=== PATIENT | male | born 1975 | race Caucasian/White ===

== ENCOUNTER 2019-10-04 10:09 | Emergency (ER) | payer OTHER, SELFPAY ==
--- NOTE | ~2019-10-04 | XR_ITS ---
EXAMINATION: XR chest 2V DATE: 10/04/2019 10:31 INDICATION: Cough. TECHNIQUE: Frontal and lateral views of the chest were obtained on 3 radiographs. COMPARISON: Chest 2 views 02/14/2019 FINDINGS: There is mild atelectasis in the mid and lower lung zones. No pleural effusion or pneumotho rax. Cardiomegaly is noted. There are changes of anterior fusion procedure in cervical spine. IMPRESSION: 1. Mild atelectasis in the mid and lower lung zones. 2. Cardiomegaly. Reviewed, dictated and finalized at location A. 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
[2019-10-04 10:19] VITALS: BP 124/82; PULSE 86; RESP 20; TEMP 37.2; O2SAT 99
--- NOTE | 2019-10-04 10:20 | ED.URI ---
HPI - URI/Sore Throat General Chief Complaint: Upper Respiratory Infection Stated Complaint: chest discomfort/cought/congestion History of Present Illness HPI Narrative: This is a 44-year-old male comes in complaining of some right-sided chest wall pain with coughing shortness of breath with movement patient has been treated for respiratory infection approximately 1 week ago was given Levaquin and some steroids still having cough is still using his inhaler patient is a smoker. Related Data Allergies Allergy/AdvReac Type Severity Reaction Status Date / Time Cephalosporins Allergy Unknown Hives Verified 09/11/19 09:49 (moderate) Penicillins Allergy Unknown Hives Verified 09/11/19 09:49 PROCHLORPERAZINE EDISYLATE Allergy Unknown spasms Uncoded 09/11/19 09:49 PROCHLORPERAZINE MALEATE Allergy Unknown spasms Uncoded 09/11/19 09:49 Review of Systems Review of Systems: Narrative: CONSTITUTIONAL: Denies fever, chills, or sweats. EYES: Denies visual changes, redness, or discharge. ENT: Reports rhinorrhea, congestion, sore throat, or otalgia. CARDIOVASCULAR:Denies chest pain, palpitations, or edema. RESPIRATORY: Reports cough or dyspnea. GASTROINTESTINAL: Denies abdominal pain, nausea, vomiting, or diarrhea. GENITOURINARY: Denies dysuria or hematuria. SKIN:[Denies rash or itching. MUSCULOSKELETAL:Denies back pain, joint pain, or myalgia. NEUROLOGIC: Denies headache, numbness, or weakness. PSYCHIATRIC:Denies anxiety or depression PMFSH Past Medical History Medical History (Updated 10/04/19 @ 10:42 by Shannan Chris NP) Chronic GERD Memory loss Social History Social History Second hand tobacco smoke exposure: No Alcohol intake: current Gender identity (if verbalized by the patient): Male Comments At time as signature, I have reviewed and agree with nursing past medical, social, surgical and family history. Please see nursing chart for further information. There is no relevant family history pertinent to the presenting complaint. Exam Narrative: Exam Narrative: GENERAL:Well-appearing, well-nourished, and in no acute distress. HEAD:Normocephalic, atraumatic. EYES: PERRLA and EOMI. ENT: Nares clear, no rhinorrhea or epistaxis. Mucous membranes moist. NECK: Supple. CHEST: Clear to diminished auscultation. No respiratory distress. Shortness of breath with ambulation and movement pain to the right upper chest toward rib cage HEART: Regular rate and rhythm. No murmur heard. Normal peripheral pulses. ABDOMEN: Soft, nontender, nondistended, normal active bowel sounds. EXTREMITIES: Normal range of motion. No edema. SKIN: Warm, dry, no rash. NEURO: No focal deficits. Alert and oriented x3. Discharge Plan Discharge Clinical Impression: Pneumonia Qualifiers: Pneumonia type: due to unspecified organism Laterality: bilateral Lung location: lower lobe of lung Qualified Code(s): J18.9 - Pneumonia, unspecified organism Patient Disposition: Home, Self-Care Condition: Stable Instructions: Antibiotic Form, Community Acquired Pneumonia (ED), Shortness of Breath (ED) Prescriptions: New levofloxacin [Levaquin] 750 mg tablet 750 mg PO DAILY 10 Days Qty: 10 RF: 0 No Action pantoprazole 40 mg tablet,delayed release (DR/EC) 40 mg PO QAM 30 Days Qty: 30 RF: 2 ketorolac 10 mg tablet 10 mg PO .4 times a day PRN (Reason: pain) 5 Days Qty: 20 RF: 1 metformin 500 mg tablet extended release 24 hr 500 mg PO .in the evening Qty: 90 RF: 0 amitriptyline 100 mg tablet 100 mg PO ONCE Qty: 30 RF: 2 montelukast 10 mg tablet 10 mg PO DAILY Qty: 30 RF: 2 fluticasone propion-salmeterol 232-14 mcg/actuation aerosol powdr breath activated 1 puff INHALATION BID Qty: 1 RF: 2 topiramate 50 mg tablet 100 mg PO DAILY Qty: 90 RF: 0 atorvastatin 40 mg tablet 40 mg PO DAILY Qty: 90 RF: 1 clotrimazole 1 % cream 1 applic TOPICAL Q12H Qty: 30 RF: 0 triamcinolone acetonide 0.1 % oin
== END 2019-10-04 10:58 | disposition home or self-care (01) ==
PROVIDERS: Emergency Provider Nurse Practitioner Family; PCP Internal Medicine
DX: J18.9 Pneumonia, unspecified organism (principal); F17.200 Nicotine dependence, unspecified, uncomplicated; K21.9 Gastro-esophageal reflux disease without esophagitis; E11.40 Type 2 diabetes mellitus with diabetic neuropathy, unspecified; E78.00 Pure hypercholesterolemia, unspecified; I10 Essential (primary) hypertension
CPT/HCPCS: 71046; 99213; G0463

== ENCOUNTER 2019-10-28 10:29 | Emergency (ER) | payer OTHER, SELFPAY ==
--- NOTE | 2019-10-28 10:47 | ED.GENADULT ---
HPI - General Adult General Stated complaint: SOB Time Seen by Provider: 10/28/19 10:47 Source: patient Mode of arrival: ambulatory Limitations: no limitations History of Present Illness HPI narrative: 44-year-old male patient presents to the [facility] with complaints of chest pain shortness of breath for the past 2 to 3 days. Patient does have a history of diabetes and asthma. Patient states he was seen a couple weeks ago at the hospital and was diagnosed with pneumonia at that time. Patient states he was given some antibiotics but states that for the past 2 to 3 days his symptoms have returned. Patient denies any fevers that he is aware of. Denies any recent travel. Patient states he is currently unemployed. Related Data Allergies Allergy/AdvReac Type Severity Reaction Status Date / Time Cephalosporins Allergy Unknown Hives Verified 10/09/19 09:58 (moderate) Penicillins Allergy Unknown Hives Verified 10/09/19 09:58 PROCHLORPERAZINE EDISYLATE Allergy Unknown spasms Uncoded 10/09/19 09:58 PROCHLORPERAZINE MALEATE Allergy Unknown spasms Uncoded 10/09/19 09:58 Review of Systems Review of Systems: Narrative: CONSTITUTIONAL: Denies fever, chills, or sweats. Positive muscle aches EYES: Denies visual changes, redness, or discharge. ENT: Denies rhinorrhea, congestion, sore throat, or otalgia. CARDIOVASCULAR: Positive chest pain, denies palpitations, or edema. RESPIRATORY: Positive cough with dyspnea. GASTROINTESTINAL: Denies abdominal pain, nausea, vomiting, or diarrhea. GENITOURINARY: Denies dysuria or hematuria. SKIN: Denies rash or itching. MUSCULOSKELETAL: Denies back pain, joint pain, or myalgia. NEUROLOGIC: Denies headache, numbness, or weakness. PSYCHIATRIC: Denies anxiety or depression. [facility] Past Medical History Medical History Chronic GERD Memory loss Social History Social History Second hand tobacco smoke exposure: No Alcohol intake: current Gender identity (if verbalized by the patient): Male Comments At the time of my signature I agree with nursing past medical history, surgical, social, and family history. There is no relevant family history pertinent to the presenting complaint. Exam Narrative: Exam Narrative: GENERAL: Well-appearing, well-nourished, and in no acute distress. HEAD: Normocephalic, atraumatic. EYES: PERRLA and EOMI. ENT: Nares clear, no rhinorrhea or epistaxis. Mucous membranes moist. NECK: Supple. No lymphadenopathy CHEST: No respiratory distress. Patient able to clear complete sentences. No tripoding noted. HEART: Regular rate and rhythm. No murmur heard. Normal peripheral pulses. ABDOMEN: Soft, nontender, nondistended, normal active bowel sounds. EXTREMITIES: Normal range of motion. No edema. SKIN: Warm, dry, no rash. NEURO: No focal deficits. Alert and oriented x3. Course Vital Signs Vital signs: Vital signs reviewed. Medical Decision Making Differential Diagnosis Differential Diagnosis: Differential diagnosis: Allergic rhinitis, chronic sinusitis, tonsillitis, acute sinusitis, infectious mononucleosis, seasonal influenza, pertussis, diphtheria, meningococcal disease, viral syndrome, viral bronchitis, RSV. Discussed with patient I did cut his information as well as his symptoms to the [facility] database to see if he would qualify for state testing of covered 19. Discussed with him that the request was denied however I do think that he could possibly be screened and therefore we have given him resources to obtain covered 19 testing including to be seen at [facility] for possible [place] at 19 testing. Discussed with patient that if his symptoms continue to get worse than he would need to go to the ER for further evaluation and testing. Discussed with patient that another thing he can do is possibly call his primary doctor to see
--- NOTE | 2019-10-28 12:35 | PC.NURSE ---
1050- This RN did not personally assess pt. When cleaning waiting room and vestibule area, pt discarded Covid testing information on the floor. Per patient insurance clerk he was laughing the entire time he was in facility with his son.
== END 2019-10-28 12:35 | disposition other institution (70) ==
PROVIDERS: Emergency Provider Nurse Practitioner Family; PCP Internal Medicine
DX: R06.02 Shortness of breath (principal); K21.9 Gastro-esophageal reflux disease without esophagitis
CPT/HCPCS: 99211; G0463

== ENCOUNTER 2020-02-27 07:53 | Outpatient (CLI) | payer OTHER, SELFPAY ==
--- NOTE | ~2020-02-27 | US_ITS ---
EXAMINATION: US thyroid DATE: 02/27/2020 08:36 INDICATION: Abnormal thyroid function tests. TECHNIQUE: Multiple ultrasound images of the thyroid were obtained. COMPARISON: None. FINDINGS: The right thyroid lobe measures 4.8 x 1.6 x 1.8 cm. The left thyroid lobe measures 4.1 x 1.8 x 1.8 c m. There is normal echotexture and echogenicity throughout the thyroid gland. No discrete nodules id entified. Normal vascular flow is present. IMPRESSION: 1. Normal thyroid. Reviewed, dictated and finalized at location A. IMPRESSION: 1. Normal thyroid.
== END 2020-02-27 07:54 | disposition home or self-care (01) ==
PROVIDERS: PCP Internal Medicine; Visit Provider Internal Medicine
DX: R79.89 Other specified abnormal findings of blood chemistry (principal)
CPT/HCPCS: 76536

== ENCOUNTER 2020-12-08 18:42 | Outpatient (CLI) | payer OTHER, SELFPAY ==
--- NOTE | ~2020-12-08 | XR_ITS ---
EXAMINATION: XR chest 2V EXAM DATE: 12/08/2020 18:54 INDICATION: Pneumonia. TECHNIQUE: Frontal and lateral projections of the chest obtained and reviewed. Comparison is made to prior examination from 10/04/2019. FINDINGS: There is moderate cardiomegaly. Some linear right midlung zone scarring. The lungs are othe rwise clear. There are no pleural effusions. There is no pneumothorax suspected. The bones and sof t tissues are unremarkable. Cervical fusion hardware. IMPRESSION: Cardiomegaly. Reviewed, dictated and finalized at location A. IMPRESSION: Cardiomegaly.
== END 2020-12-08 18:43 | disposition home or self-care (01) ==
PROVIDERS: PCP Family Medicine; Visit Provider Family Medicine
DX: J18.9 Pneumonia, unspecified organism (principal); I51.7 Cardiomegaly
CPT/HCPCS: 71046

== ENCOUNTER 2023-05-25 08:53 | Outpatient (CLI) | payer OTHER, SELFPAY ==
--- NOTE | ~2023-05-25 | XR_ITS ---
XR sternum min 2V DATE: 05/25/2023 09:12 INDICATION: Precordial pain for one year. No injury.] As the TECHNIQUE: Oblique and lateral views COMPARISON: None FINDINGS: No sternal fracture or bone destruction is detected. Normal alignment at the sternoclavicul ar joints. Lower anterior cervical spine surgical fusion. IMPRESSION: Negative sternum Reviewed, dictated and finalized at location A. IMPRESSION: Negative sternum
== END 2023-05-25 08:54 | disposition home or self-care (01) ==
PROVIDERS: PCP Physician Assistant; Visit Provider Physician Assistant
DX: R07.2 Precordial pain (principal)
CPT/HCPCS: 71120

== ENCOUNTER 2023-11-19 08:44 | Outpatient (CLI) | payer OTHER, SELFPAY ==
[2023-11-19 09:31] LABS: Alanine Aminotransferase 29 U/L (6-50); Albumin Level 5.2 g/dL (3.5-5.1); Alkaline Phosphatase 80 U/L (38-126); Anion Gap 8 mmol/L (4-12); Aspartate Amino Transferase 28 U/L (17-59); Bilirubin,Total 0.5 mg/dL (0.2-1.3); Blood Urea Nitrogen 12 mg/dL (9-20); Calcium 9.9 mg/dL (8.4-10.2); Carbon Dioxide 24 mmol/L (22-30); Chloride 108 mmol/L (98-107); Cholesterol 163 mg/dL (0-200); Estimated Glomerular Filt Rate > 60; Glucose 106 mg/dL (65-110); HDL Direct 47 mg/dL; Potassium 4.6 mmol/L (3.4-5.0); Sodium 140 mmol/L (137-145); Triglycerides 99 mg/dL (<150)
[2023-11-19 09:42] LABS: LDL Cholesterol Direct 98 mg/dL
[2023-11-19 09:57] LABS: Hemoglobin A1C 5.8 % (<5.7)
[2023-11-19 10:02] LABS: Thyroid Stimulating Hormone 0.611 uIU/mL (0.465-4.680)
[2023-11-19 10:31] LABS: Vitamin D 25 Hydroxy 33.6 ng/mL
== END 2023-11-19 08:45 | disposition home or self-care (01) ==
LOC: ANHLAB 08:47
PROVIDERS: PCP Physician Assistant; Visit Provider Physician Assistant
DX: E66.3 Overweight (principal); E55.9 Vitamin D deficiency, unspecified
CPT/HCPCS: 36415; 80053; 80061; 82306; 83036; 84439; 84443

== ENCOUNTER 2024-01-04 07:54 | Outpatient (CLI) | payer OTHER, SELFPAY ==
--- NOTE | 2024-01-05 08:57 | P.PCNPFT_ITS ---
PFT Procedure Performed PFT Procedure Performed Plethysmography (Lung Vol) Diffusing Cap (DLCO) Flow Vol Loop Spirometry w/o Bronchodil PFT Interpretation Lung volumes were measured with the body plethysmography method. Lung volumes are unremarkable. Spirometry showed diminished expiratory flow rates and a n ormal FEV1 to FVC ratio 78%. The restrictive pattern on spirometry in conjunction with a normal total lung capacity is indicative of a non specific pattern. No post bronchodilator study was carried out. Lung diffusion capacity is moderately reduced at 55% predicted. The diminished lung diffusion capacity coupled with a low alveolar volume and normal DLCO/VA ratio may suggest loss of alveolar capillary structure as seen in emphysema or interstitial lung disease. Clinical correlation advised. The flow volume loop is unremarkable. Impression: Nonspecific pattern. Moderately reduced lung diffusion capacity.
== END 2024-01-04 07:55 | disposition home or self-care (01) ==
LOC: ANHPFT 07:55
PROVIDERS: PCP Physician Assistant; Visit Provider Physician Assistant
DX: J44.9 Chronic obstructive pulmonary disease, unspecified (principal)
CPT/HCPCS: 94375; 94726; 94729

== ENCOUNTER 2024-05-24 09:51 | Emergency (ER) | payer OTHER, SELFPAY ==
--- NOTE | ~2024-05-24 | XR_ITS ---
CHEST RADIOGRAPH, PA AND LATERAL CLINICAL HISTORY: syncope yesterday evening, denies cardiac or blood pressure . COMPARISON: 05/25/2023 TECHNIQUE: PA and lateral views of the chest. FINDINGS The cardiomediastinal silhouette is unremarkable. The lungs are clear. Visualized osseous structures and soft tissues are unremarkable. IMPRESSION: No focal infiltrate or effusion. Reviewed, dictated and finalized at location A.
--- NOTE | ~2024-05-24 | CT_ITS ---
CT brain wo con Ordering provider: Maynor Garduno MD History: 49 years Male with . syncope . Comparison: October 20, 2018 Technique: CT of the head without contrast. Radiation reduction technique utilized.The dose-length product was 605.33 mGy-cm. FINDINGS: BRAIN PARENCHYMA AND CSF SPACES: No midline shift, mass effect or hemorrhage. The brain parenchyma a nd CSF spaces are otherwise normal. VISUALIZED PARANASAL SINUSES: Well aerated. MASTOIDS: Well aerated. BONES: The bones appear intact. SOFT TISSUES: Visualized nasopharynx is normal. Superficial soft tissues are normal. IMPRESSION: No acute intracranial findings. Reviewed, dictated and finalized at location A.
[2024-05-24 09:56] VITALS: BP 137/78; PULSE 99; RESP 18; TEMP 36.7; O2SAT 100
--- NOTE | 2024-05-24 09:56 | ECG_ITS ---
Test Date: 2024-05-24 10:02:20 Measurements Intervals [place] Rate: 57 P: 61 [place]: 159 QRS: -44 QRSD: 142 T: 93 QT: 391 QTc: 384 Interpretive Statements SINUS BRADYCARDIA WITH MARKED RHYTHM IRREGULARITY, POSSIBLE NON-CONDUCTED PAC, SA BLOCK, AV BLOCK, OR SINUS PAUSE LEFT ATRIAL ENLARGEMENT [-0.15mV P WAVE IN V1/V2] MARKED LEFT AXIS DEVIATION [QRS AXIS < -30] INTRAVENTRICULAR CONDUCTION DELAY [130+ ms QRS DURATION] No previous ECG available for comparison Electronically Signed On 05-24-2024 15:25:02 CDT by Azeb Dolan M.D.
[2024-05-24 10:15] LABS: Basophils Absolute Auto 0.1 K/mm3 (0.0-0.1); Basophils Percent Auto 0.8 % (0.2-1.2); Eosinophils Absolute Auto 0.1 K/mm3 (0-0.3); Eosinophils Percent Auto 1.1 % (0-4.4); Hematocrit 49.3 % (42.0-52.0); Hemoglobin 16.1 g/dL (14.0-18.0); Immature Granulocyte Absolute 0.05 K/mm3 (0.00-0.031); Immature Granulocyte Percent A 0.4 % (0-0.5); Lymphocytes Absolute Auto 3.07 K/mm3 (0.9-3.2); Lymphocytes Percent Auto 25.9 % (18.3-44.2); Mean Corpuscular HGB Conc 32.7 g/dl (32-36); Mean Corpuscular Hemoglobin 30.7 pg (26-34); Mean Corpuscular Volume 93.9 fl (80-100); Mean Platelet Volume 10.8 fl (7.4-10.4); Monocytes Absolute Auto 0.7 K/mm3 (0.1-0.6); Monocytes Percent Auto 5.5 % (2.6-8.5); Neutrophils Absolute Auto 7.9 K/mm3 (1.3-6.7); Neutrophils Percent Auto 66.3 % (45.5-73.1); Platelet Count Result 324 k/mm3 (150-375); Red Blood Count 5.25 M/mm3 (4.6-6.20); Red Cell Distribution Width 14.2 % (11.5-14.5); White Blood Count 11.9 K/mm3 (4.5-10.0)
[2024-05-24 10:24] LABS: Alanine Aminotransferase 34 U/L (6-50); Albumin Level 4.7 g/dL (3.5-5.1); Alkaline Phosphatase 74 U/L (38-126); Anion Gap 11 mmol/L (4-12); Aspartate Amino Transferase 34 U/L (17-59); Bilirubin,Total 0.7 mg/dL (0.2-1.3); Blood Urea Nitrogen 18 mg/dL (9-20); Calcium 9.3 mg/dL (8.4-10.2); Carbon Dioxide 23 mmol/L (22-30); Chloride 104 mmol/L (98-107); Estimated CRCL calculation 75 ml/min; Estimated Glomerular Filt Rate > 60; Glucose 139 mg/dL (65-110); Sodium 138 mmol/L (137-145)
--- NOTE | 2024-05-24 11:48 | ED.SYNCOPE ---
HPI - Syncope General Chief Complaint: Syncope Stated Complaint: syncope, hit head Time Seen by Provider: 05/24/24 10:12 Source: patient Mode of arrival: ambulatory Limitations: no limitations History of Present Illness HPI narrative: 49-year-old otherwise healthy here with the complaints of having syncopal episode last night. Patient states that he was trying to walk towards his bathroom felt dizzy and passed out for few seconds. He states that he hit his head against wall. No LOC. He denies any chest pain or palpitation. Patient states that he had a similar episode few years ago while urinating. complaint: felt faint Onset (ago): day(s) (1) -: second(s) Prodromal symptoms: none Witnessed: Yes - by Other (Family) Context: getting out of bed Injuries sustained associated with event: none Current symptoms: none Treatments prior to arrival: none Related Data Home Medications Medication Instructions Recorded Confirmed cariprazine 1.5 mg capsule 1.5 mg PO DAILY 04/02/20 08/13/20 (Vraylar) Allergies Allergy/AdvReac Type Severity Reaction Status Date / Time Cephalosporins Allergy Intermediate Hives Verified 05/24/24 09:51 (moderate) Penicillins Allergy Intermediate Hives Verified 05/24/24 09:51 PROCHLORPERAZINE EDISYLATE Allergy Intermediate spasms Uncoded 05/24/24 09:51 PROCHLORPERAZINE MALEATE Allergy Unknown spasms Uncoded 05/24/24 09:51 Review of Systems Review of Systems: All systems reviewed & are unremarkable except as noted in HPI and below Constitutional: Constitutional: Reports no additional constitutional complaints Eyes: Eyes: Reports no additional eye complaints ENT: Reports system reviewed and no additional complaints, except as documented Cardiovascular: Cardiovascular: Reports no additional cardiovascular complaints Respiratory: Respiratory: Reports no additional respiratory complaints Gastrointestinal: Gastrointestinal: Reports no additional gastrointestinal complaints Musculoskeletal: Musculoskeletal: Reports no additional musculoskeletal complaints Neurologic: Reports system reviewed and no additional complaints, except as documented [facility] Past Medical History Medical History Chronic GERD Major depression, recurrent, chronic Memory loss Social History Social History Second hand tobacco smoke exposure: No Alcohol intake: current Gender identity (if verbalized by the patient): Male Exam Narrative: GENERAL: Well-appearing, well-nourished, and in no acute distress. HEAD: Normocephalic, atraumatic. EYES: PERRLA and EOMI. ENT: Nares clear, NECK: Supple. CHEST: Clear to auscultation. No respiratory distress. HEART: Regular rate and rhythm. No murmur heard. Normal peripheral pulses. ABDOMEN: Soft, nontender, nondistended, normal active bowel sounds. EXTREMITIES: Normal range of motion. No edema. SKIN: Warm, dry, no rash. NEURO: No focal deficits. Alert and oriented x3. PSYCH: Normal mood and affect. Course Course Emergency Course: Notified patient about his lab work, CT and EKG findings appears to be vasovagal syncope at this time. I advised him to follow-up with his primary doctor. Drink more fluids Vital Signs Vital signs: Vital Signs Temperature 36.7 C 05/24/24 09:56 Pulse Rate 99 05/24/24 09:56 Respiratory Rate 18 05/24/24 09:56 Blood Pressure 137/78 05/24/24 09:56 Pulse Oximetry 100 05/24/24 09:56 Oxygen Delivery Room Air 05/24/24 09:56 Temperature 36.7 C 05/24/24 09:56 Pulse Rate 99 05/24/24 09:56 Respiratory Rate 18 05/24/24 09:56 Blood Pressure 137/78 05/24/24 09:56 Pulse Oximetry 100 05/24/24 09:56 Oxygen Delivery Room Air 05/24/24 09:56 MDM - Syncope MDM Narrative Medical decision making narrative: 49-year-old with a syncopal episode presently has no complaint in the do a CT of the head cardiac workup. Differential Diagnosis Differential diagnosis: Likely syncope due to orthostatic hypotension, vasovagal syncope, complete atrioventricular block and dehydration Medical Records Attestation: I reviewed the patient's medical records. Lab Data Attestation: I reviewed the patient's lab results. 05/24/24 10:06 05/24/24 10:06 Labs: Lab Results 05/24/24 Range/Units 10:06 WBC 11.9 H (4.5-10.0) K/mm3 RBC 5.25 (4.6-6.20) M/mm3 Hgb 16.1 (14.0-18.0) g/dL Hct 49.3 (42.0-52.0) % MCV 93.9 (80-100) fl MCH 30.7 (26-34) pg MCHC 32.7 (32-36) g/dl RDW 14.2 (11.5-14.5) % Plt Count 324 (150-375) k/mm3 MPV 10.8 H (7.4-10.4) fl Immature Gran % (Auto) 0.4 (0-0.5) % Neut % (Auto) 66.3 (45.5-73.1) % Lymph % (Auto) 25.9 (18.3-44.2) % [place] % (Auto) 5.5 (2.6-8.5) % Eos % (Auto) 1.1 (0-4.4) % Baso % (Auto) 0.8 (0.2-1.2) % Lymph # (Auto) 3.07 (0.9-3.2) K/mm3 [place] # (Auto) 0.7 H (0.1-0.6) K/mm3 Eos # (Auto) 0.1 (0-0.3) K/mm3 Baso # (Auto) 0.1 (0.0-0.1) K/mm3 Abs Immat Gran (auto) 0.05 H (0.00-0.031) K/mm3 Absolute Neuts (auto) 7.9 H (1.3-6.7) K/mm3 Absolute Nucleated RBC 0.000 (0.0-0.012) K/mm3 Nucleated RBC % 0.0 (0.0-0.2) % Sodium 138 (137-145) mmol/L Potassium 4.0 (3.4-5.0) mmol/L Chloride 104 (98-107) mmol/L Carbon Dioxide 23 (22-30) mmol/L Anion Gap 11 (4-12) mmol/L BUN 18 (9-20) mg/dL Creatinine 1.10 (0.7-1.3) mg/dL Estim Creat Clear Calc 75 ml/min Estimated GFR > 60 (59 - ) Glucose 139 H (65-110) mg/dL Calcium 9.3 (8.4-10.2) mg/dL Total Bilirubin 0.7 (0.2-1.3) mg/dL AST 34 (17-59) U/L ALT 34 (6-50) U/L Alkaline Phosphatase 74 (38-126) U/L Total Protein 9.0 H (6.3-8.2) g/dL Albumin 4.7 (3.5-5.1) g/dL Imaging Data Radiologist's impression: ITS Impressions Chest X-Ray 05/24/24 10:28 IMPRESSION: No focal infiltrate or effusion. Head CT 05/24/24 11:10 IMPRESSION: No acute intracranial findings. ECG Data EKG #1: ECG completion date: 05/24/24 ECG completion time: 10:02 EKG Interpretation: bradycardia (57), sinus rhythm, non-specific ST changes and left axis Discharge Plan Discharge Clinical Impression: Syncope Patient Disposition: Home, Self-Care Condition: Stable Instructions: Antibiotic Form, Syncope (ED) Prescriptions: No Action sumatriptan succinate 100 mg tablet See Rx Instructions PO .COMPLEX Qty: 12 5RF Rx Instructions: take 1 tab at onset of headache; if no relief, may repeat 1 tab after at least 2 hrs; max = 2 tabs/24 hrs PO Vraylar 1.5 mg capsule 1.5 mg PO DAILY amitriptyline 100 mg tablet 100 mg PO DAILY 30 Days Qty: 30 2RF [place] 75 mg tablet 75 mg PO DAILY 30 Days Qty: 30 1RF quetiapine 150 mg tablet extended release 24 hr 150 mg PO QPM 30 Days Qty: 30 1RF prazosin 5 mg capsule 5 mg PO QPM 30 Days Qty: 30 1RF ketorolac 10 mg tablet 10 mg PO .4 times a day PRN (Reason: pain) 5 Days Qty: 20 1RF atorvastatin 40 mg tablet 40 mg PO DAILY Qty: 90 1RF ipratropium-albuterol 0.5 mg-3 mg(2.5 mg base)/3 mL solution for nebulization 3 ml INHALATION QID PRN (Reason: shortness of breath) Qty: 90 0RF metformin 500 mg tablet extended release 24 hr 500 mg PO .in the evening Qty: 90 0RF cyclobenzaprine 10 mg tablet 10 mg PO TID PRN (Reason: muscle spasm) Qty: 90 0RF pantoprazole 40 mg tablet,delayed release (DR/EC) 40 mg PO QAM 30 Days Qty: 90 1RF OneTouch Verio test strips Strip See Rx Instructions .ROUTE .COMPLEX Qty: 25 0RF Dose Instruction: TEST ONCE DAILY Rx Instructions: TEST ONCE DAILY fluticasone propion-salmeterol 232-14 mcg/actuation aerosol powdr breath activated 1 inh INHALATION BID Qty: 1 2RF (DME) Blood Glucose Test Strip See Rx Instructions .ROUTE .MEDSUPPLY Qty: 100 1RF Rx Instructions: As directed patient test 1 time a day clotrimazole 1 % cream See Rx Instructions .ROUTE .COMPLEX Qty: 45 2RF Dose Instruction: APPLY EXTERNALLY TO THE AFFECTED AREA EVERY 12 HOURS Rx Instructions: APPLY EXTERNALLY TO THE AFFECTED AREA EVERY 12 HOURS montelukast 10 mg tablet 10 mg PO DAILY Qty: 90 0RF triamcinolone acetonide 0.1 % ointment 1 applic TOPICAL BID Qty: 454 1RF bupropion HCl 150 mg tablet sustained-release 12 hr 150 mg PO BID 30 Days Qty: 180 1RF Rx Instructions: Patient is due for appointment polyethylene glycol 3350 17 gram powder in packet 17 g PO DAILY 30 Days Qty: 30 1RF topiramate 50 mg tablet 100 mg PO DAILY Qty: 90 1RF nicotine 7 mg/24 hr patch 24 hour 1 patch transdermal DAILY Qty: 14 1RF gabapentin 300 mg capsule See Rx Instructions .ROUTE .COMPLEX Qty: 90 0RF Dose Instruction: TAKE 1 CAPSULE BY MOUTH THREE TIMES DAILY Rx Instructions: TAKE 1 CAPSULE BY MOUTH THREE TIMES DAILY albuterol sulfate 90 mcg/actuation HFA aerosol inhaler 1 inh INHALATION Q4H PRN (Reason: shortness of breath or wheezing) Qty: 8.5 3RF escitalopram oxalate 20 mg tablet 20 mg PO DAILY 30 Days Qty: 30 2RF Follow-up/Referrals: Patricia,ANGEL Gandhi [Primary Care Provider] - Azeb Dolan MD [Physician] - Time of Disposition: 11:55
[2024-05-24 12:02] VITALS: BP 125/82; PULSE 79; RESP 14; TEMP 36.6; O2SAT 100
== END 2024-05-24 12:03 | disposition home or self-care (01) ==
PROVIDERS: Emergency Provider Family Medicine; PCP Physician Assistant
DX: R55 Syncope and collapse (principal); E11.9 Type 2 diabetes mellitus without complications; K21.9 Gastro-esophageal reflux disease without esophagitis; F33.9 Major depressive disorder, recurrent, unspecified; Z79.899 Other long term (current) drug therapy; Z79.84 Long term (current) use of oral hypoglycemic drugs; R00.1 Bradycardia, unspecified; R94.31 Abnormal electrocardiogram [ECG] [EKG]; I45.9 Conduction disorder, unspecified
CPT/HCPCS: 36415; 70450; 71046; 80053; 85025; 93005; 99284